=== PATIENT | male | born 1965 | race Caucasian/White ===

== ENCOUNTER 2020-08-29 14:16 | Emergency (ER) | payer OTHER ==
[2020-08-29 14:30] VITALS: BP 152/108; PULSE 112
[2020-08-29] MEDS ORDERED: Ondansetron 4 MG/2 ML SDV IVPUSH ONE (14:37)
[2020-08-29] MEDS ORDERED: Sodium Chloride 0.9% 10 ML Syringe FLUSH PRN (14:37)
[2020-08-29] MEDS ORDERED: HYDROmorphone 1 MG/ML Syringe IVPUSH ONE (14:39)
[2020-08-29] MEDS ORDERED: Sodium Chloride 0.9% 1,000 ML IV SCH (14:45)
--- NOTE | 2020-08-29 15:12 | CR ---
Chest: Portable view of the chest was obtained. Heart size is slightly enlarged. Upper mediastinum is within normal limits. Patchy areas of increased density are seen within both lung bases. Upper lungs are fairly clear. Bony structures show nothing acute. Impression: 1. Areas of increased density within both lungs. Please correlate if patient has any symptoms of pneumonia. 2. Heart is slightly enlarged. Diagnostic code #3
--- NOTE | 2020-08-29 15:36 | EDM.PDOC ---
ED HPI GENERAL MEDICAL PROBLEM - General Chief Complaint: Gastrointestinal Problem Stated Complaint: HIGH BLOOD PRESSURE/DEHYDRATED Time Seen by Provider: 08/29/20 14:28 Source of Information: Reports: Patient History Limitations: Reports: No Limitations - History of Present Illness INITIAL COMMENTS - FREE TEXT/NARRATIVE: The patient presents with nausea and vomiting. He says this has been going on for about 3 days. He also says he has some chest pain and shortness of breath. He has no fever or chills but he does have a slight cough. He has no abdominal pain. 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 He said that his heart doctor down in [place] took him off all of his medications because he was doing good. He has a history of diabetes but he does not take anything. He is also weak. As far as he knows he did not eat any bad food and he has not been around anyone who is sick. Onset: Gradual Duration: Day(s): (3) Location: Reports: Chest Quality: Reports: Sharp Severity: Mild Improves with: Reports: None Worsens with: Reports: None Associated Symptoms: Reports: Chest Pain, Cough, Nausea/Vomiting, Shortness of Breath. Denies: Fever/Chills, Headaches Abdominal Pain Score (Numeric/FACES): 6 - Related Data Allergies Allergy/AdvReac Type Severity Reaction Status Date / Time No Known Allergies Allergy Verified 08/29/20 14:29 Home Meds: Home Meds . [No Known Home Meds] 01/15/16 [History] Past Medical History - Past Health History Medical/Surgical History: Denies Medical/Surgical History HEENT History: Reports: None Cardiovascular History: Reports: CAD, Cardiomyopathy, High Cholesterol, Hypertension, SD, Other (See Below) Other Cardiovascular History: ischemic cardiomyopathy Respiratory History: Reports: Asthma, Other (See Below) Other Respiratory History: panlobular emphysema Gastrointestinal History: Reports: None Musculoskeletal History: Reports: Back Pain, Chronic Other Musculoskeletal History: peripheral polyneuropathy Neurological History: Reports: CVA Other Neuro History: right sided anterior cerebral circulation infarction; stroke Psychiatric History: Reports: Anxiety, Depression Endocrine/Metabolic History: Reports: Diabetes, Type I Dermatologic History: Reports: None - Past Surgical History GI Surgical History: Reports: None Musculoskeletal Surgical History: Reports: None Social & Family History - Family History Family Medical History: No Pertinent Family History - Tobacco Use Tobacco Use Status *Q: Current Every Day Tobacco User Years of Tobacco use: 40 Packs/Tins Daily: 1 - Caffeine Use Caffeine Use: Reports: Soda - Recreational Drug Use Recreational Drug Use: Yes Drug Use in Last 12 Months: Yes Recreational Drug Type: Reports: Marijuana/Hashish Recreational Drug Use Frequency: Weekly ED ROS GENERAL - Review of Systems Review Of Systems: See Below Constitutional: Reports: No Symptoms HEENT: Reports: No Symptoms Respiratory: Reports: Shortness of Breath, Cough Cardiovascular: Reports: Chest Pain Endocrine: Reports: No Symptoms GI/Abdominal: Reports: Nausea, Vomiting. Denies: Abdominal Pain : Reports: No Symptoms Musculoskeletal: Reports: No Symptoms ED EXAM, GI/ABD - Physical Exam Exam: See Below Exam Limited By: No Limitations General Appearance: Alert, No Apparent Distress Ears: Normal External Exam Nose: Normal Inspection Head: Atraumatic, Normocephalic Neck: Normal Inspection Respiratory/Chest: No Respiratory Distress, Lungs Clear, Normal Breath Sounds Cardiovascular: Regular Rate, Rhythm, No Edema, No Murmur GI/Abdominal Exam: Soft, Non-Tender, No Organomegaly, No Mass Back Exam: Normal Inspection Extremities: Normal Inspection #1 Interpretation EKG Date: 08/29/20 Time: 14:51 Rhythm: Other (sinus tachycardia) Rate (Beats/Min): 107 [place]: Normal P-Wave: Present QRS: Normal ST-T: Normal QT: Normal EKG Interpretation Comments: Multifocal PVCs Course - Vital Signs Last Recorded V/S: Last Vital Signs Temp 96.9 F 08/29/20 14:25 Pulse 112 H 08/29/20 14:25 Resp 18 08/29/20 14:25 BP 152/108 H 08/29/20 14:25 Pulse Ox 96 08/29/20 14:25 - Orders/Labs/Meds Orders: Active Orders 24 hr Category Date Time Status Cardiac Monitoring [RC] . DIRECTED Care 08/29/20 14:37 Active EKG Documentation Completion [RC] STAT Care 08/29/20 14:38 Active Peripheral IV Care [RC] . DIRECTED Care 08/29/20 14:38 Active CULTURE BLOOD [BC] Stat Lab 08/29/20 16:34 Ordered CULTURE BLOOD [BC] Stat Lab 08/29/20 16:34 Ordered LACTIC ACID W/ REFLEX [LACTATE SEPSIS W/ REFLEX] [CHEM] Lab 08/29/20 16:34 Ordered Stat Heparin Sodium/D5W [Heparin 25,000 Units in D5W 500 ML] Med 08/29/20 17:00 Active 25,000 units in 500 ml IV TITRATE Sodium Chloride 0.9% [Normal Saline] 1,000 ml Med 08/29/20 14:45 Active IV .BOLUS Sodium Chloride 0.9% [Saline Flush] Med 08/29/20 14:37 Active 10 ml FLUSH ASDIRECTED PRN Blood Culture x2 Reflex Set [OM.PC] Stat Oth 08/29/20 16:34 Ordered ED Antiemetic Medication Reflex [OM.PC] Stat Oth 08/29/20 14:37 Ordered Peripheral IV Insertion Adult [OM.PC] Stat Oth 08/29/20 14:37 Ordered Medication Orders Sodium Chloride (Normal Saline) 1,000 mls @ 1,000 mls/hr IV .BOLUS COLIN Last Admin: 08/29/20 14:55 Dose: 1,000 mls/hr Documented by: ZULEMA Heparin Sodium/Dextrose (Heparin 25,000 Units In D5w 500 Ml) 25,000 units in 500 mls @ 19.051 mls/hr IV TITRATE COLIN; Protocol Sodium Chloride (Sodium Chloride 0.9% 10 Ml Syringe) 10 ml FLUSH ASDIRECTED PRN PRN Reason: Keep Vein Open Last Admin: 08/29/20 14:55 Dose: 10 ml Documented by: ZULEMA Labs: Laboratory Tests 08/29/20 08/29/20 08/29/20 Range/Units 14:12 14:12 15:28 WBC 10.86 H (4.23-9.07) K/mm3 RBC 5.49 (4.63-6.08) M/mm3 Hgb 11.7 L D (13.7-17.5) gm/dl Hct 39.0 L (40.1-51.0) % MCV 71.0 L D (79.0-92.2) fl MCH 21.3 L (25.7-32.2) pg MCHC 30.0 L (32.2-35.5) g/dl RDW Std Deviation 42.7 (35.1-43.9) fL Plt Count 455 H D (163-337) K/mm3 MPV 10.2 (9.4-12.3) fl Neut % (Auto) 73.0 H (34.0-67.9) % Lymph % (Auto) 16.2 L (21.8-53.1) % [place] % (Auto) 7.0 (5.3-12.2) % Eos % (Auto) 2.8 (0.8-7.0) Baso % (Auto) 0.7 (0.1-1.2) % Neut # (Auto) 7.93 H (1.78-5.38) K/mm3 Lymph # (Auto) 1.76 (1.32-3.57) K/mm3 [place] # (Auto) 0.76 (0.30-0.82) K/mm3 Eos # (Auto) 0.30 (0.04-0.54) K/mm3 Baso # (Auto) 0.08 (0.01-0.08) K/mm3 Manual Slide Review Abnormal smear Sodium 138 (136-145) mEq/L Potassium 3.5 (3.5-5.1) mEq/L Chloride 95 L (98-107) mEq/L Carbon Dioxide 30 (21-32) mEq/L Anion Gap 16.5 H (5-15) BUN 16 (7-18) mg/dL Creatinine 1.4 H (0.7-1.3) mg/dL Est Cr Clr Drug Dosing 1.98 mL/min Estimated GFR (MDRD) 52 (>60) mL/min BUN/Creatinine Ratio 11.4 L (14-18) Glucose 142 H (74-106) mg/dL Calcium 10.4 H (8.5-10.1) mg/dL Total Bilirubin 2.2 H (0.2-1.0) mg/dL AST 50 H (15-37) U/L ALT 57 (16-63) U/L Alkaline Phosphatase 131 H (46-116) U/L Troponin I 0.077 H* (0.00-0.056) ng/mL Total Protein 8.0 (6.4-8.2) g/dl Albumin 3.1 L (3.4-5.0) g/dl Globulin 4.9 gm/dL Albumin/Globulin Ratio 0.6 L (1-2) Lipase 52 L (73-393) U/L SARS-CoV-2 RNA (JOSLYN) Negative (NEGATIVE) Meds: Medications Generic Name Dose Route Start Last Admin Trade Name Alycia PRN Reason Stop Dose Admin Sodium Chloride 1,000 mls @ 1,000 mls/hr 08/29/20 14:45 08/29/20 14:55 Normal Saline IV 1,000 mls/hr .BOLUS COLIN Administration Heparin Sodium/Dextrose 25,000 units in 500 mls @ 19.051 mls/hr 08/29/20 17:00 Heparin 25,000 Units In D5w 500 Ml IV TITRATE COLIN Protocol 10 UNITS/KG/HR Sodium Chloride 10 ml 08/29/20 14:37 08/29/20 14:55 Sodium Chloride 0.9% 10 Ml Syringe FLUSH 10 ml ASDIRECTED PRN Administration Keep Vein Open Discontinued Medications Generic Name Dose Route Start Last Admin Trade Name Alycia PRN Reason Stop Dose Admin Aspirin 324 mg 08/29/20 16:34 08/29/20 16:49 Aspirin 81 Mg Tab.Chew PO 08/29/20 16:35 324 mg ONETIME ONE Administration Heparin Sodium (Porcine) 5,000 units 08/29/20 16:50 Heparin Sodium 5,000 Units/Ml Vial IVPUSH 08/29/20 16:51 .BOLUS ONE Hydromorphone HCl 1 mg 08/29/20 14:39 08/29/20 14:55 Hydromorphone 1 Mg/Ml Syringe IVPUSH 08/29/20 14:40 1 mg ONETIME ONE Administration Ceftriaxone Sodium 2 gm/ 100 mls @ 200 mls/hr 08/29/20 16:34 08/29/20 16:49 Sodium Chloride IV 08/29/20 17:03 200 mls/hr ONETIME ONE Administration Ondansetron HCl 4 mg 08/29/20 14:37 08/29/20 14:55 Ondansetron 4 Mg/2 Ml Sdv IVPUSH 08/29/20 14:38 4 mg ONETIME ONE Administration - Re-Assessments/Exams Free Text/Narrative Re-Assessment/Exam: 08/29/20 17:22 I ordered an IV NS 1L bolus, zofran 4mg IV, dilaudid 1mg IV, labs, EKG, and CXR. His EKG shows a sinus tachycardia at a rate of 107. There are some PVCs but nothing acute. His CXR shows areas of increased density within both lungs. Please correlate if patient has any symptoms of pneumonia. Heart is slightly enlarged. I have ordered blood cultures and lactic acid and I started rocpehin 2grams IV. His WBC was elevated at 10.86. His Hgb was low at 11.7. His anion gap was elevated at 16.5. His creatinine was elevated at 1.4. His glucose was elevated at 142. His total bili was elevated at 2.2. Her AST was elevated at 50. His alk phos is elevated at 131. His troponin is elevated at 0.077. His lipase is low at 52. His COVID 19 is negative. I am concerned he may have a nonSTEMI. His chest pain is gone. I have ordered aspirin. Heparin bolus and drip. I called [facility] in [place] and talked with Dr Lang and he accepted the patient. 08/29/20 17:29 Departure - Departure Time of Disposition: 17:30 Disposition: DC/Tfer to Acute Hospital 02 Condition: Serious Clinical Impression: Elevated troponin, Renal insufficiency, Non-STEMI (non-ST elevated myocardial infarction) Pneumonia Qualifiers: Pneumonia type: due to unspecified organism Laterality: bilateral Lung location: lower lobe of lung Qualified Code(s): J18.9 - Pneumonia, unspecified organism Nausea and vomiting Qualifiers: Vomiting type: unspecified Vomiting Intractability: non-intractable Qualified Code(s): R11.2 - Nausea with vomiting, unspecified - Discharge Information Referrals: PCP,None [Primary Care Provider] - Forms: ED Department Discharge Sepsis Event Note (ED) - Evaluation Sepsis Screening Result: No Definite Risk - Focused Exam Vital Signs: Vital Signs Temp Pulse Resp BP Pulse Ox 08/29/20 14:25 96.9 F 112 H 18 152/108 H 96 - My Orders Last 24 Hours: My Active Orders 08/29/20 14:37 Cardiac Monitoring [RC] . DIRECTED Sodium Chloride 0.9% [Saline Flush] 10 ml FLUSH ASDIRECTED PRN ED Antiemetic Medication Reflex [OM.PC] Stat Peripheral IV Insertion Adult [OM.PC] Stat 08/29/20 14:38 EKG Documentation Completion [RC] STAT Peripheral IV Care [RC] . DIRECTED 08/29/20 14:45 Sodium Chloride 0.9% [Normal Saline] 1,000 ml IV .BOLUS 03/29/21 16:34 CULTURE BLOOD [BC] Stat CULTURE BLOOD [BC] Stat LACTIC ACID W/ REFLEX [LACTATE SEPSIS W/ REFLEX] [CHEM] Stat Blood Culture x2 Reflex Set [OM.PC] Stat 08/29/20 17:00 Heparin Sodium/D5W [Heparin 25,000 Units in D5W 500 ML] 25,000 units in 500 ml IV TITRATE - Assessment/Plan Last 24 Hours: My Active Orders 08/29/20 14:37 Cardiac Monitoring [RC] . DIRECTED Sodium Chloride 0.9% [Saline Flush] 10 ml FLUSH ASDIRECTED PRN ED Antiemetic Medication Reflex [OM.PC] Stat Peripheral IV Insertion Adult [OM.PC] Stat 08/29/20 14:38 EKG Documentation Completion [RC] STAT Peripheral IV Care [RC] . DIRECTED 08/29/20 14:45 Sodium Chloride 0.9% [Normal Saline] 1,000 ml IV .BOLUS 08/29/20 16:34 CULTURE BLOOD [BC] Stat CULTURE BLOOD [BC] Stat LACTIC ACID W/ REFLEX [LACTATE SEPSIS W/ REFLEX] [CHEM] Stat Blood Culture x2 Reflex Set [OM.PC] Stat 08/29/20 17:00 Heparin Sodium/D5W [Heparin 25,000 Units in D5W 500 ML] 25,000 units in 500 ml IV TITRATE
[2020-08-29] MEDS ORDERED: Aspirin 81 MG Tab.Chew PO ONE (16:34)
[2020-08-29] MEDS ORDERED: cefTRIAXone 2 GM in Sodium Chloride 0.9% 100 ML IV ONE (16:34)
[2020-08-29] MEDS ORDERED: Heparin Sodium 5,000 Units/ML Vial IVPUSH ONE (16:50)
[2020-08-29] MEDS ORDERED: Heparin Sodium/D5W 25,000 UNITS/500 ML BAG IV SCH (17:00)
== END 2020-08-29 20:35 ==
LOC: JD.ED 14:16
DX: J18.9 Pneumonia, unspecified organism (principal); I21.4 Non-ST elevation (NSTEMI) myocardial infarction; N28.9 Disorder of kidney and ureter, unspecified; R79.89 Other specified abnormal findings of blood chemistry; R11.2 Nausea with vomiting, unspecified; D72.829 Elevated white blood cell count, unspecified; R00.0 Tachycardia, unspecified; I25.10 Atherosclerotic heart disease of native coronary artery without angina pectoris; I10 Essential (primary) hypertension; J43.1 Panlobular emphysema; E10.42 Type 1 diabetes mellitus with diabetic polyneuropathy; Z72.0 Tobacco use; Z95.5 Presence of coronary angioplasty implant and graft; Z20.822 Contact with and (suspected) exposure to COVID-19
CPT/HCPCS: 36415; 71045; 80053; 83605; 83690; 84484; 85025; 87040; 87635; 93005; 96365; 96366; 96367; 96375; 99285; A9270; J0696; J1170; J1644; J2405; J7030; 93010; U0002

== ENCOUNTER 2021-08-24 10:24 | Inpatient (IN) | payer MEDICAID ==
[2021-08-24] MEDS ORDERED: Furosemide 40 MG/4 ML VIAL IVPUSH ONE (12:08)
[2021-08-24] MEDS ORDERED: Docusate Sodium 100 MG Cap PO PRN (14:15)
[2021-08-24] MEDS ORDERED: Ondansetron 4 MG Tab.DIS PO PRN (14:15)
[2021-08-24] MEDS: Acetaminophen 325 MG Tab PO PRN ×2 (17:28→23:25)
[2021-08-24] MEDS ORDERED: amLODIPine 5 MG Tab PO ONE (18:00)
[2021-08-24] MEDS ORDERED: Furosemide 40 MG/4 ML VIAL IVPUSH SCH (21:00)
[2021-08-25] MEDS ORDERED: Furosemide 40 MG/4 ML VIAL IVPUSH SCH (06:00)
[2021-08-25] MEDS ORDERED: Magnesium Oxide 400 MG Tab PO ONE (07:57)
[2021-08-25] MEDS: Enoxaparin 40 MG/0.4 ML Syringe SUBCUT SCH (08:00)
[2021-08-25] MEDS: Potassium Chloride 20 MEQ Tab.ER PO SCH ×3 (08:15→15:50)
[2021-08-25] MEDS: oxyCODONE 5 MG Tab PO PRN ×2 (09:18→18:54)
[2021-08-25] MEDS ORDERED: Losartan 25 MG Tab PO SCH (10:45)
[2021-08-25] MEDS: Metoprolol Succinate 25 MG Tab.ER PO SCH (10:55)
[2021-08-25] MEDS: Sacubitril/Valsartan 1 EACH Tablet PO SCH ×2 (11:41→21:15)
[2021-08-25] MEDS: Furosemide 20 MG/2 ML VIAL IVPUSH SCH (13:43)
[2021-08-25] MEDS ORDERED: amLODIPine 5 MG Tab PO ONE (16:33)
[2021-08-25] MEDS: Acetaminophen 325 MG Tab PO PRN (18:54)
[2021-08-25] MEDS: buPROPion 150 MG Tab.SR PO SCH (21:15)
[2021-08-25] MEDS: Temazepam 7.5 MG Cap PO PRN (21:16)
[2021-08-26] MEDS: oxyCODONE 5 MG Tab PO PRN ×2 (03:14→17:07)
[2021-08-26] MEDS: Furosemide 20 MG/2 ML VIAL IVPUSH SCH ×2 (06:20→14:43)
[2021-08-26] MEDS: Metoprolol Succinate 25 MG Tab.ER PO SCH (08:07)
[2021-08-26] MEDS: Enoxaparin 40 MG/0.4 ML Syringe SUBCUT SCH (08:07)
[2021-08-26] MEDS: Sacubitril/Valsartan 1 EACH Tablet PO SCH ×2 (08:07→20:13)
[2021-08-26] MEDS: buPROPion 150 MG Tab.SR PO SCH ×2 (08:08→20:13)
[2021-08-26] MEDS: Temazepam 7.5 MG Cap PO PRN (20:13)
[2021-08-27] MEDS: Furosemide 20 MG/2 ML VIAL IVPUSH SCH (05:28)
[2021-08-27] MEDS: oxyCODONE 5 MG Tab PO PRN (06:18)
[2021-08-27] MEDS: Enoxaparin 40 MG/0.4 ML Syringe SUBCUT SCH (08:28)
[2021-08-27] MEDS: Sacubitril/Valsartan 1 EACH Tablet PO SCH (08:28)
[2021-08-27] MEDS: buPROPion 150 MG Tab.SR PO SCH (08:28)
[2021-08-27] MEDS: Metoprolol Succinate 25 MG Tab.ER PO SCH (08:29)
[2021-08-27 08:30] VITALS: BP 148/98
[2021-08-27 10:20] VITALS: PULSE 84
== END 2021-08-27 12:16 | disposition home or self-care (01) | DRG 291 ==
LOC: JD.ED 10:24 → JD.MS 13:52
PROVIDERS: ADMIT Pediatrics; ATTEND Pediatrics
DX: I11.0 Hypertensive heart disease with heart failure (principal); I50.23 Acute on chronic systolic (congestive) heart failure; E87.6 Hypokalemia; I25.10 Atherosclerotic heart disease of native coronary artery without angina pectoris; E78.00 Pure hypercholesterolemia, unspecified; E10.42 Type 1 diabetes mellitus with diabetic polyneuropathy; F41.9 Anxiety disorder, unspecified; F32.A Depression, unspecified; Z20.822 Contact with and (suspected) exposure to COVID-19; J45.909 Unspecified asthma, uncomplicated; I25.5 Ischemic cardiomyopathy; F17.200 Nicotine dependence, unspecified, uncomplicated; J43.1 Panlobular emphysema; R16.0 Hepatomegaly, not elsewhere classified; I08.1 Rheumatic disorders of both mitral and tricuspid valves; N50.89 Other specified disorders of the male genital organs; Z95.5 Presence of coronary angioplasty implant and graft; I25.2 Old myocardial infarction; Z86.73 Personal history of transient ischemic attack (TIA), and cerebral infarction without residual deficits
CPT/HCPCS: 36415; 51702; 71045; 71045-26; 80053; 81001; 83735; 83880; 84145; 84484; 85025; 85610; 86140; 93005; 93010; 93306; 96374; 99285; 99285-25; A9270-GY; J1650; J1940; U0002

== ENCOUNTER 2021-11-01 14:43 | Emergency (ER) | payer MEDICAID ==
[2021-11-01 14:47] VITALS: BP 133/100; PULSE 85
[2021-11-01] MEDS ORDERED: Thiamine 200 MG/2 ML MDV IVPUSH ONE (15:43)
[2021-11-01] MEDS ORDERED: Dextrose 5%-Lactated Ringers 1,000 ML IV SCH (15:45)
[2021-11-01 16:54] LABS: ESTIMATED GFR > 60 mL/min (>60)
== END 2021-11-01 20:32 | disposition home or self-care (01) ==
LOC: JD.ED 14:43
DX: F10.129 Alcohol abuse with intoxication, unspecified (principal); G89.29 Other chronic pain; I11.0 Hypertensive heart disease with heart failure; I50.9 Heart failure, unspecified; I25.10 Atherosclerotic heart disease of native coronary artery without angina pectoris; I25.2 Old myocardial infarction; E10.42 Type 1 diabetes mellitus with diabetic polyneuropathy; Z86.73 Personal history of transient ischemic attack (TIA), and cerebral infarction without residual deficits
CPT/HCPCS: 36415; 70450; 71045; 80053; 80307; 83690; 83735; 83880; 84484; 85025; 85610; 85730; 86140; 93005; 96361; 96374; 99285; J3411; J7121; 93010; 99284

== ENCOUNTER 2021-11-02 05:22 | Inpatient (IN) | payer MEDICAID ==
[2021-11-02] MEDS ORDERED: Sodium Chloride 0.9% 10 ML Syringe FLUSH PRN ×2 (05:36→09:14)
[2021-11-02] MEDS ORDERED: Lactated Ringers 1,000 ML IV ONE (05:36)
[2021-11-02 06:50] LABS: ESTIMATED GFR 52 mL/min (>60)
[2021-11-02] MEDS ORDERED: Furosemide 40 MG/4 ML VIAL IVPUSH ONE (08:39)
[2021-11-02 09:06] LABS: CORONAVIRUS COVID-19 NAA NEGATIVE (NEGATIVE)
[2021-11-02] MEDS ORDERED: Iopamidol 755 Mg/ML 100 ML Bottle IVPUSH ONE (09:14)
[2021-11-02] MEDS ORDERED: Sodium Chloride 0.9% 100 ML IV SCH (09:15)
[2021-11-02] MEDS ORDERED: Levofloxacin/Dextrose 5%-Water 750 MG in Premix Bag 1 BAG IV ONE (09:38)
[2021-11-02] MEDS ORDERED: Dextrose 5%-0.9% NaCl 1,000 ML IV SCH (09:45)
[2021-11-02] MEDS ORDERED: LORazepam 2 MG/ML SDV IV ONE (11:37)
[2021-11-02] MEDS ORDERED: Magnesium Sulfate/Water 2 GM in Premix Bag 1 BAG IV ONE (12:41)
[2021-11-02] MEDS ORDERED: Piperacillin/Tazobactam 4.5 GM in Sodium Chloride 0.9% 100 ML IV ONE (12:44)
[2021-11-02] MEDS ORDERED: Thiamine 200 MG/2 ML MDV IVPUSH SCH (12:45)
[2021-11-02] MEDS: Piperacillin/Tazobactam 4.5 GM in Sodium Chloride 0.9% 100 ML IV SCH ×2 (13:37→20:54)
[2021-11-02] MEDS: LORazepam 2 MG/ML SDV IVPUSH PRN (14:58)
[2021-11-02] MEDS: Folic Acid 50 MG/10 ML MDV IV SCH (15:57)
[2021-11-02] MEDS: Dextrose 5%-0.45% NaCl 1,000 ML IV SCH (16:54)
[2021-11-03] MEDS: Dextrose 5%-0.45% NaCl 1,000 ML IV SCH ×2 (00:40→12:28)
[2021-11-03] MEDS: LORazepam 2 MG/ML SDV IVPUSH PRN ×4 (01:10→20:37)
[2021-11-03] MEDS: Piperacillin/Tazobactam 4.5 GM in Sodium Chloride 0.9% 100 ML IV SCH ×3 (04:46→20:34)
[2021-11-03 06:37] LABS: ESTIMATED GFR > 60 mL/min (>60)
[2021-11-03] MEDS: Thiamine 500 MG in Sodium Chloride 0.9% 100 ML IV SCH (09:12)
[2021-11-03] MEDS: Folic Acid 50 MG/10 ML MDV IV SCH (09:16)
[2021-11-03] MEDS: Potassium Chloride Riders 10 MEQ in Premix Bag 1 BAG IV SCH ×3 (10:41→12:34)
[2021-11-04] MEDS: Dextrose 5%-0.45% NaCl 1,000 ML IV SCH ×2 (04:18→18:05)
[2021-11-04] MEDS: Piperacillin/Tazobactam 4.5 GM in Sodium Chloride 0.9% 100 ML IV SCH ×3 (04:19→19:54)
[2021-11-04] MEDS ORDERED: Furosemide 20 MG/2 ML VIAL IVPUSH ONE (06:06)
[2021-11-04] MEDS: Insulin Lispro 100 Unit/ML 3 ML KwikPen SUBCUT SCH ×3 (06:21→17:15)
[2021-11-04] MEDS ORDERED: Insulin Lispro 100 Unit/ML 3 ML KwikPen SUBCUT SCH (07:30)
[2021-11-04] MEDS: Folic Acid 50 MG/10 ML MDV IV SCH (09:29)
[2021-11-04] MEDS: Thiamine 500 MG in Sodium Chloride 0.9% 100 ML IV SCH (09:29)
[2021-11-04] MEDS ORDERED: Furosemide 40 MG/4 ML VIAL IVPUSH ONE (10:00)
[2021-11-04] MEDS: LORazepam 2 MG/ML SDV IVPUSH PRN (21:16)
[2021-11-05] MEDS: Piperacillin/Tazobactam 4.5 GM in Sodium Chloride 0.9% 100 ML IV SCH ×3 (04:07→19:54)
[2021-11-05] MEDS: Insulin Lispro 100 Unit/ML 3 ML KwikPen SUBCUT SCH ×3 (07:01→17:17)
[2021-11-05] MEDS: Folic Acid 50 MG/10 ML MDV IV SCH (09:08)
[2021-11-05] MEDS: Thiamine 500 MG in Sodium Chloride 0.9% 100 ML IV SCH (09:08)
[2021-11-05] MEDS ORDERED: Magnesium Sulfate/Water 4 GM in Premix Bag 1 BAG IV ONE (11:10)
[2021-11-05] MEDS ORDERED: Furosemide 40 MG/4 ML VIAL IVPUSH ONE (11:11)
[2021-11-05] MEDS: Potassium Chloride Riders 10 MEQ in Premix Bag 1 BAG IV SCH ×4 (11:42→15:01)
[2021-11-05] MEDS ORDERED: Metoprolol Tartrate 5 MG in Sodium Chloride 0.9% 50 ML IV ONE (14:29)
[2021-11-05] MEDS ORDERED: Bisacodyl 10 MG Supp RECTAL ONE (14:39)
[2021-11-05] MEDS ORDERED: Nitroglycerin 2% Oint 1 GM UD Packet TOP ONE (14:45)
[2021-11-05] MEDS ORDERED: Metoprolol Tartrate 5 MG/5 ML SDV IVPUSH ONE ×3 (14:45→16:39)
[2021-11-05] MEDS ORDERED: hydrALAZINE 20 MG/ML SDV IVPUSH PRN (14:56)
[2021-11-05] MEDS ORDERED: hydrALAZINE 20 MG/ML SDV IVPUSH ONE ×2 (16:39→17:59)
[2021-11-05] MEDS ORDERED: LORazepam 2 MG/ML SDV IVPUSH ONE (17:59)
[2021-11-05] MEDS ORDERED: Metoprolol Tartrate 5 MG/5 ML SDV IVPUSH PRN (19:00)
[2021-11-05] MEDS: Dextrose 5%-0.45% NaCl 1,000 ML IV SCH (19:53)
[2021-11-05] MEDS: hydrALAZINE 20 MG/ML SDV IVPUSH PRN (21:16)
[2021-11-06] MEDS: Piperacillin/Tazobactam 4.5 GM in Sodium Chloride 0.9% 100 ML IV SCH ×3 (05:23→20:37)
[2021-11-06 06:09] LABS: ESTIMATED GFR > 60 mL/min (>60)
[2021-11-06] MEDS: hydrALAZINE 20 MG/ML SDV IVPUSH PRN ×2 (06:14→20:45)
[2021-11-06] MEDS: LORazepam 2 MG/ML SDV IVPUSH PRN ×5 (06:27→20:07)
[2021-11-06] MEDS: Insulin Lispro 100 Unit/ML 3 ML KwikPen SUBCUT SCH ×3 (06:44→19:11)
[2021-11-06] MEDS: Thiamine 200 MG/2 ML MDV IVPUSH SCH (09:17)
[2021-11-06] MEDS: Folic Acid 50 MG/10 ML MDV IV SCH (09:18)
[2021-11-06] MEDS: Potassium Chloride Riders 10 MEQ in Premix Bag 1 BAG IV SCH ×4 (10:58→14:59)
[2021-11-06] MEDS: Dextrose 5%-0.45% NaCl 1,000 ML IV SCH (12:08)
[2021-11-06] MEDS: Nystatin Susp 100,000 Unit/ML 5 ML Oral Syringe PO SCH ×3 (12:42→20:36)
[2021-11-06] MEDS: Heparin Sodium 5,000 Units/ML Vial SUBCUT SCH ×2 (13:52→20:11)
[2021-11-07] MEDS: LORazepam 2 MG/ML SDV IVPUSH PRN ×7 (00:49→21:30)
[2021-11-07] MEDS: Dextrose 5%-0.45% NaCl 1,000 ML IV SCH ×2 (03:35→16:53)
[2021-11-07] MEDS: Piperacillin/Tazobactam 4.5 GM in Sodium Chloride 0.9% 100 ML IV SCH ×3 (05:03→20:12)
[2021-11-07] MEDS: Heparin Sodium 5,000 Units/ML Vial SUBCUT SCH ×3 (05:04→20:12)
[2021-11-07] MEDS: hydrALAZINE 20 MG/ML SDV IVPUSH PRN ×3 (05:19→22:49)
[2021-11-07] MEDS: Insulin Lispro 100 Unit/ML 3 ML KwikPen SUBCUT SCH ×3 (06:05→16:10)
[2021-11-07 07:47] LABS: ESTIMATED GFR > 60 mL/min (>60)
[2021-11-07] MEDS: Thiamine 200 MG/2 ML MDV IVPUSH SCH (08:10)
[2021-11-07] MEDS: Nystatin Susp 100,000 Unit/ML 5 ML Oral Syringe PO SCH ×4 (08:10→20:32)
[2021-11-07] MEDS: Folic Acid 50 MG/10 ML MDV IV SCH (08:38)
[2021-11-07] MEDS ORDERED: Magnesium Hydroxide 400 MG/5 ML Susp 30 ML Cup PO ONE (09:30)
[2021-11-08] MEDS ORDERED: Magnesium Hydroxide 400 MG/5 ML Susp 30 ML Cup PO ONE (05:08)
[2021-11-08] MEDS: Piperacillin/Tazobactam 4.5 GM in Sodium Chloride 0.9% 100 ML IV SCH ×2 (05:25→13:35)
[2021-11-08] MEDS: Heparin Sodium 5,000 Units/ML Vial SUBCUT SCH ×2 (05:27→13:32)
[2021-11-08] MEDS: Insulin Lispro 100 Unit/ML 3 ML KwikPen SUBCUT SCH ×2 (07:43→12:15)
[2021-11-08 08:12] VITALS: BP 142/84
[2021-11-08] MEDS: Thiamine 200 MG/2 ML MDV IVPUSH SCH (08:49)
[2021-11-08] MEDS: Folic Acid 50 MG/10 ML MDV IV SCH (08:49)
[2021-11-08] MEDS: Nystatin Susp 100,000 Unit/ML 5 ML Oral Syringe PO SCH ×2 (08:50→13:32)
[2021-11-08 12:40] VITALS: PULSE 109
[2021-11-08] MEDS: LORazepam 2 MG/ML SDV IVPUSH PRN (13:37)
== END 2021-11-08 13:46 | DRG 177 ==
LOC: JD.ED 05:22 → JD.ICU 12:37 → JD.MS 11-07 19:54
PROVIDERS: ADMIT Pediatrics; ATTEND Pediatrics
PROC: 5A09457 Assistance with Respiratory Ventilation, 24-96 Consecutive Hours, Continuous Positive Airway Pressure (ICD-10-PCS; principal; 2021-11-02)
DX: J69.0 Pneumonitis due to inhalation of food and vomit (principal); I50.23 Acute on chronic systolic (congestive) heart failure; E51.2 Wernicke's encephalopathy; F10.239 Alcohol dependence with withdrawal, unspecified; I42.0 Dilated cardiomyopathy; E87.1 Hypo-osmolality and hyponatremia; E83.42 Hypomagnesemia; R13.10 Dysphagia, unspecified; I25.10 Atherosclerotic heart disease of native coronary artery without angina pectoris; E78.00 Pure hypercholesterolemia, unspecified; I11.0 Hypertensive heart disease with heart failure; I25.5 Ischemic cardiomyopathy; J45.909 Unspecified asthma, uncomplicated; G89.29 Other chronic pain; M54.9 Dorsalgia, unspecified; G62.9 Polyneuropathy, unspecified; F41.9 Anxiety disorder, unspecified; F32.A Depression, unspecified; E10.42 Type 1 diabetes mellitus with diabetic polyneuropathy; Z20.822 Contact with and (suspected) exposure to COVID-19; E87.6 Hypokalemia; Z79.899 Other long term (current) drug therapy; I25.2 Old myocardial infarction; Z86.73 Personal history of transient ischemic attack (TIA), and cerebral infarction without residual deficits
CPT/HCPCS: 0240U; 36415; 36600; 51702; 51798; 70450; 70450-26; 71045; 71045-26; 71275; 71275-26; 80053; 80306; 80307; 82150; 82803; 82947; 83605; 83690; 83735; 83880; 84100; 84484; 85025; 85379; 86140; 87040; 92610-GN; 93005; 93010; 94660; 96361; 96365; 96366; 96368; 96375; 99232; 99239; 99283; 99285-25; A9270-GY; J0360; J1644; J1815; J1940; J1956; J2060; J2543; J3411; J3475; J3480; J3490; J7042; J7120; Q9967; U0002